=== PATIENT | female | born 1985 | race African-American/Black ===

== ENCOUNTER 2018-06-02 15:57 | Emergency (ER) | payer SELFPAY ==
[~2018-06-02] VITALS: Ht 165.1 cm; Wt 70.4 kg
[2018-06-02 16:14] VITALS: Ht 165.1 cm; Wt 70.4 kg
[2018-06-02 17:31] VITALS: BP 125/77
== END 2018-06-02 17:31 | disposition home or self-care (01) ==
LOC: ED 15:57
DX: S20.221A Contusion of right back wall of thorax, initial encounter (principal); S39.012A Strain of muscle, fascia and tendon of lower back, initial encounter; V49.49XA Driver injured in collision with other motor vehicles in traffic accident, initial encounter; Y93.I9 Activity, other involving external motion; Y92.413 State road as the place of occurrence of the external cause; Y99.8 Other external cause status
CPT/HCPCS: Q0092